=== PATIENT | male | born 1975 | race Caucasian/White ===

== ENCOUNTER 2017-05-30 11:30 | Emergency (ER) | payer SELFPAY ==
[~2017-05-30] VITALS: Ht 188 cm; Wt 106.8 kg
[~2017-05-30 11:30] MED LIST: RANI150T PO; ZOFR4TAB3 SL
[2017-05-30 11:31] VITALS: BP 135/81; PULSE 73; RESP 16; TEMP 98.3; O2SAT 97
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
== END 2017-05-30 13:12 | disposition left against medical advice (07) ==
LOC: NED 11:30
DX: S09.90XA Unspecified injury of head, initial encounter (principal); W22.8XXA Striking against or struck by other objects, initial encounter
CPT/HCPCS: 99281